=== PATIENT | female | born 1945 | race Two or more races ===

== ENCOUNTER 2022-12-22 09:13 | Outpatient (AMB) | payer MEDICARE, SELFPAY ==
--- NOTE | ~2022-12-22 | XR_ITS ---
EXAMINATION: XR KNEE AP STANDING CLINICAL INFORMATION: Pain in right knee COMPARISON: Right knee 12/22/2022 TECHNIQUE: AP bilateral standing view of the knees was obtained. FINDINGS: No fracture. Alignment is anatomic. Joint spaces are maintained. No abnormal soft tissue calcification. XR/XR knee standing BI IMPRESSION: No bony abnormality.
--- OUTSIDE RECORDS SUMMARY | 2022-12-22 09:14 | XMS_ITS | Continuity of Care Document ---
Author Name Unknown Organization [facility] ter Address [address] [place] [id number]- Care Team Providers Care Machine Accountant Name Role Phone Miko Cruz MD Primary Care Physician Encounter [facility] [place] Date(s): 06/02/19 - 06/09/[address] [address]- [facility] Attending Physician: Miko Cruz MD Allergies, Adverse Reactions, Alerts Substance Reaction Severity Status Lipitor muscle aches Active Immunizations Given and Recorded Vaccine Date Status Refusal Reason tetanus-diphtheria toxoids (Td) 05/15/96 Given Medications calcium and vitamin D combination 600 mg-200 u oral tablet 1, tablet, By Mouth, 2 times a day, 60, tablet, , , 07/01/06 8:52:53, Print YON Number, [id number], Constant Indicator Start Date: 07/01/06 Stop Date: 06/26/07 Status: Ordered Crestor 10 mg oral tablet 1 tablet = 10 mg, By Mouth, Daily at bedtime, 0 Refills, Maintenance Start Date: 04/30/12 Status: Ordered Problem List Condition Effective Dates Status Health Status 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
--- OUTSIDE RECORDS SUMMARY | 2022-12-22 09:14 | XMS_ITS | Continuity of Care Document ---
Author Name Unknown Organization [facility] ter Address [address] [place] [id number]- Care Team Providers Care Fence Builder Name Role Phone Miko Cruz MD Primary Care Physician [phone] Encounter [facility] [place] Date(s): 02/24/20 - 05/09/[address] [address]- Attending Physician: Miko Cruz MD Admitting Physician: Miko Cruz MD Referring Physician: Miko Cruz MD Allergies, Adverse Reactions, Alerts Substance Reaction Severity Status Lipitor muscle aches Active Immunizations Given and Recorded Vaccine Date Status Refusal Reason tetanus-diphtheria toxoids (Td) 05/15/96 Given Medications calcium and vitamin D combination 600 mg-200 u oral tablet 1, tablet, By Mouth, 2 times a day, 60, tablet, , , 07/01/06 8:52:53, Print YON Number, [id number], Constant Indicator Start Date: 07/01/06 Stop Date: 06/26/07 Status: Ordered Crestor 10 mg oral tablet 1 tablet = 10 mg, By Mouth, Daily at bedtime, 0 Refills, Maintenance Start Date: 04/30/12 Status: Ordered Problem List Condition Effective Dates Status Health Status 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
--- NOTE | 2022-12-22 09:15 | AM.OFFWIN_ITS ---
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 Past medical history significant for hypercholesteremia and no known other past medical history, she denies history of osteoarthritis, but does report new onset of bilateral hand and finger joints, no previous knee injuries or pain. 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 She does report swelling of right knee yesterday, but decreased swelling today. She endorses applying Bengay cream with some relief in pain. She denies taking acetaminophen or Ibuprofen for the pain, she also denies fever, chills, CP, SOB, dizziness, headache, changes in bowels or bladder. Review of Systems Const All systems reviewed & are unremarkable except as noted in HPI and below Physical Exam Vital Signs: Last Vital Signs Temp 98.5 F 12/22/22 09:17 Pulse 62 12/22/22 09:17 BP 116/60 12/22/22 09:17 Pulse Ox 94 12/22/22 09:17 Oxygen Delivery Method Room Air 12/22/22 09:17 Const General: healthy appearing and no acute distress Nutritional Appearance: well nourished Orientation/consciousness: patient oriented x3 Limitations: other limitations (limping) HEENT Head: Yes normocephalic and Yes atraumatic Ears: hearing grossly normal bilaterally Mouth: moist mucous membranes Chest Chest palpation & inspection: normal inspection of the chest Resp Effort & Inspection: normal respiratory effort, no cough, no respiratory distress and not tachypneic Auscultation: clear to auscultation bilaterally Cardio Rate: regular rate Rhythm: regular rhythm Heart sounds: S1 normal heart sound present and S2 normal heart sound present Peripheral pulses: Peripheral pulses 2+ throughout GI Palpation (GI): Soft to palpation, nontender and No hepatosplenomegaly present Auscultation: normal bowel sounds General: Yes no CVA tenderness Bimanual exam- vagina & uterus: normal bimanual exam Back/Spine/Pelvis Back: no CVA tenderness Skin General skin exam: no rashes or lesions noted and turgor normal Neuro General: patient oriented x3 and moves all extremities Extrem Right upper extremity: normal to inspection Left upper extremity: normal to inspection Right lower extremity: knee Details: tenderness, swelling Location: of the patella (+ 1 edema, no erythema, and warmth normal), abnormal ROM Details: pain with active ROM during, knee ligament exam normal and other (no effusion appreciated); no crepitus and no unusual warmth; no cyanosis Left lower extremity: normal to inspection and full ROM; no cyanosis, no edema and joint enlargement noted Psych Appearance: well kempt Mental Status: mental status grossly normal Speech and movement: Normal speech and movement present Affect: normal affect Attitude: cooperative Assessment & Plan Assessment & Plan (1) Osteoarthritis of right knee: Code(s): M17.11 - Unilateral primary osteoarthritis, right knee Qualifiers: Osteoarthritis type: unspecified Qualified Code(s): M17.11 - Unilateral primary osteoarthritis, right knee Plan: 77-year-old female with right knee pain x3 days. X-ray reveals narrowing joint, osteo arthritis Plan of Care: 1. Tylenol 1000 mg, orally, every 6 hours as needed for right knee pain. 2. Lidocaine patch, available [id number] and should be apply to area of maximal tenderness as directed on the outside packaging. 3. Ibuprofen 400 mg, orally with milk or food, every 6 hours as needed for right knee pain. 4. Ice to muscle pain twice a day, may alternate w/ heat therapy. 5. Follow up with PCP for further treatment and recommendations; may benefit from physical therapy. 6. Encouraged to take Calcium and Vitamin D supplements. 7. Return to office w/ unrelieved or worsening symptoms. Call office, or go to ER for acute worsening of symptoms. Coding Level of Care Code New Pt Level 3 (74562) Diagnoses Osteoarthritis of right knee M17.11 Osteoarthritis type: unspecified
[2022-12-22 09:17] VITALS: BP 116/60; PULSE 62; TEMP 36.9; O2SAT 94
== END 2022-12-22 09:47 | disposition home or self-care (01) ==
PROVIDERS: PCP Internal Medicine; Visit Provider Nurse Practitioner Acute Care
DX: M17.11 Unilateral primary osteoarthritis, right knee (principal)
CPT/HCPCS: 99051; 99203

== ENCOUNTER 2022-12-22 09:30 | Outpatient (REF) | payer MEDICARE, SELFPAY ==
--- NOTE | ~2022-12-22 | XR_ITS ---
EXAMINATION: XR KNEE, RIGHT CLINICAL INFORMATION: Right knee pain. COMPARISON: None available. TECHNIQUE: Four views of the right knee. FINDINGS: No significant tricompartmental degenerative joint changes are seen. There is no acute fracture or dislocation. There is a small to moderate suprapatellar joint effusion. The soft tissues are unremarkable. XR/XR knee RT 4V IMPRESSION: Small to moderate suprapatellar joint effusion. No acute fracture or significant degenerative joint changes.
== END 2022-12-22 09:31 | disposition home or self-care (01) ==
LOC: HO.HMGCX 09:30
PROVIDERS: PCP Internal Medicine; Visit Provider Nurse Practitioner Acute Care
DX: M25.561 Pain in right knee (principal)
CPT/HCPCS: 73564

== ENCOUNTER 2023-01-01 08:50 | Outpatient (AMB) | payer MEDICARE, SELFPAY ==
--- NOTE | 2023-01-01 09:00 | MHC.OFFVIS ---
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 States pain started about 3-4 weeks ago while she was sitting on the couch, pain worsens with weight bearing, or climbing stairs, and difficult to get comfortable at night in bed. She does report intermittent swelling of right knee. She has tried Bengay cream with some relief in pain. She denies taking acetaminophen or Ibuprofen for the pain. Seen in at walk- in Center where she was told to see an othopedic if pain worsens. 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 She was seen at walk-in clinic where she was referred to our office. She states she has pain and intermittent swelling in her right knee which is aggravated with weight bearing, laying down, going upstairs and at night. She finds mild relief with Bengay cream. 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 Review of Systems Const All systems reviewed & are unremarkable except as noted in HPI and below Physical Exam Vital Signs: BMI result Body Mass Index 23.2 Const General: cooperative, healthy appearing, comfortable, no acute distress, well developed and alert Orientation/consciousness: patient oriented x3 HEENT Head: Yes normal to inspection, Yes normocephalic and Yes atraumatic Eyes General: appearance normal, both eyes and all related structures Resp Effort & Inspection: normal respiratory effort and able to speak in complete sentences Cardio Rate: regular rate Peripheral pulses: Peripheral pulses 2+ throughout GI Palpation (GI): Soft to palpation Skin Lesions: no lesions Rashes: no rashes Neuro General: patient oriented x3 Extrem Other: Right knee: Skin intact, no erythema or joint effusion. Lateral retropatellar tenderness with tenderness along the medial joint line. Full ROM with crepitus. Negative Wilber?s. No ligamentous laxity. NVI. Lat retro patient tenderness and med joint line pain Office Procedures Joint Injection/Drain Joint Injection/Drain Details: 28cc joint fluid asp from right knee Primary Site: right knee Prep: site was prepped using aseptic technique, ethochloride spray was applied and injection warnings given Injected: 80 mg of, DepoMedrol, with 8 mL of, 1% plain lidocaine and in the joint Approach Used: lateral parapatellar Procedure: The patient tolerated the procedure well and there was some relief with the local anesthesia Coding 16117 - Glenohumeral/Tronchanteric Bursa/Intraarticular Procedure code (CPT) selection complete Results Reviewed Results Reviewed: 01/01/23 09:35 Lidocaine HCl 2 % MPF [Xylocaine 2 % MPF] 5 ml .ROUTE .STK-MED ONE methylPREDNISolone acetate [DEPO-MedroL] 80 mg .ROUTE .STK-MED ONE Xrays were obtained in the office today and personally reviewed by me show mild medial compartment oa Assessment & Plan Assessment & Plan (1) Osteoarthritis of right knee: Code(s): M17.11 - Unilateral primary osteoarthritis, right knee Qualifiers: Osteoarthritis type: unspecified Qualified Code(s): M17.11 - Unilateral primary osteoarthritis, right knee Plan We discussed options today which include steroid injection and asp. They did consent to move forward with the right knee injection/asp, which was tolerated well. 28cc Yellow joint fluid aspirated. I recommended rest, ice and elevation and OTC anti-inflammatories PRN for discomfort. If symptoms persist or worsens over the next 6-8 weeks, patient will contact the office, otherwise follow-up as needed. Orders: Orders XR knee standing BI Today M25.561 - Pain in right knee, M25.562 - Pain in left knee Patient Instructions: Scribed for Wilbert Lake PA-C, by Yousuf Sheldon medical anthropology director, on 01/01/2023 at 9:00 AM EST. I, Wilbert Lake PA-C, have personally reviewed and agree with the information entered by the scribe. Coding Level of Care Code New Pt Level 3 (07070) Diagnoses Osteoarthritis of right knee M17.11 Osteoarthritis type: unspecified CPT Codes Coding - Joint 7: 45172 - Glenohumeral/Tronchanteric Bursa/Intraarticular ([id number])
[2023-01-01 09:11] VITALS: BMI 23.2
== END 2023-01-01 10:44 | disposition home or self-care (01) ==
PROVIDERS: PCP Internal Medicine; Visit Provider Physician Assistant
DX: M17.11 Unilateral primary osteoarthritis, right knee (principal)
CPT/HCPCS: 20610; 99204

== ENCOUNTER → 2023-01-01 08:50 | Outpatient (BNVA) | payer MEDICARE, SELFPAY | PROVIDERS: PCP Internal Medicine; Visit Provider Physician Assistant | DX: M17.11 Unilateral primary osteoarthritis, right knee (principal) | CPT/HCPCS: 20610; J1040 ==

== ENCOUNTER 2023-01-01 15:53 | Outpatient (REF) | payer MEDICARE, SELFPAY ==
--- NOTE | ~2023-01-01 | XR_ITS ---
EXAMINATION: XR KNEE AP STANDING CLINICAL INFORMATION: Pain COMPARISON: Previous x-ray December 2022 TECHNIQUE: AP bilateral standing view of the knees was obtained. FINDINGS: Bone alignment is normal. No fracture or dislocation. Very mild joint space narrowing at the medial femoral tibial joints, left greater than right. Soft tissues are unremarkable. XR/XR knee standing BI IMPRESSION: Very mild medial femoral tibial joint space narrowing, left greater than right.
== END 2023-01-01 15:54 | disposition home or self-care (01) ==
LOC: HO.HOSX 15:53
PROVIDERS: Visit Provider Physician Assistant
DX: M17.11 Unilateral primary osteoarthritis, right knee (principal)
CPT/HCPCS: 20610; 73565

== ENCOUNTER 2023-07-19 09:07 | Outpatient (AMB) | payer MEDICARE, SELFPAY ==
--- NOTE | 2023-07-19 09:24 | A.OFFVIS_ITS ---
Intake Vital Signs 07/19/23 09:29 Height 5 ft 3 in Weight 131 lb BMI 23.2 Intake Visit Reasons: ov- Right Knee Pain Intake Note: Yony a 77 year old female presents today for a follow up of right knee OA, last injection on 01/01/23. Patient reports last injection provided her with relief until the past 2.5 weeks and has been progressively getting worse. States fluid has returned. Finds little relief with Tylenol, ibuprofen and topical creams. She would like to repeat injection today. Allergies No Known Allergies Allergy (Verified 07/19/23 09:28) HPI ov- Right Knee Pain HPI Details 77-year-old female who returns to the [facility] today for a follow-up of right knee pain. She currently states she has progressively worsening pain in his right knee. She finds mild relief with Tylenol, ibuprofen, and topical cream. She also reports the fluid in her knee has returned and would like to get it removed. She had her last injection on 01/01/23 which provided her relief until about 2.5 weeks ago. She would like to repeat the injection today. 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 Review of Systems Const All systems reviewed & are unremarkable except as noted in HPI and below Physical Exam Vital Signs: BMI result Body Mass Index 23.2 Const General: cooperative, healthy appearing, comfortable, no acute distress, well developed and alert Orientation/consciousness: patient oriented x3 HEENT Head: Yes normal to inspection, Yes normocephalic and Yes atraumatic Eyes General: appearance normal, both eyes and all related structures Resp Effort & Inspection: normal respiratory effort and able to speak in complete sentences Cardio Rate: regular rate Peripheral pulses: Peripheral pulses 2+ throughout GI Palpation (GI): Soft to palpation Skin Lesions: no lesions Rashes: no rashes Neuro General: patient oriented x3 Extrem Other: Right knee: Skin intact, no erythema or joint effusion. Lateral retropatellar tenderness with tenderness along the medial joint line. Full ROM with crepitus. Negative Wilber?s. No ligamentous laxity. NVI. Lat retro patient tenderness and med joint line pain Office Procedures Joint Injection/Drain Joint Injection/Drain Details: knee asp of 35cc joint fluid Primary Site: right knee Prep: site was prepped using aseptic technique and injection warnings given Injected: 80 mg of, DepoMedrol, with 8 mL of, 1% plain lidocaine and in the joint Approach Used: lateral parapatellar Procedure: The patient tolerated the procedure well Coding 52072 - Glenohumeral/Tronchanteric Bursa/Intraarticular Procedure code (CPT) selection complete Assessment & Plan Assessment & Plan (1) Osteoarthritis of right knee: Code(s): M17.11 - Unilateral primary osteoarthritis, right knee Qualifiers: Osteoarthritis type: unspecified Qualified Code(s): M17.11 - Unilateral primary osteoarthritis, right knee Plan We discussed options today which include steroid injection. They did consent to move forward with the left knee injection and asp, which was tolerated well. I was able to aspirate 35cc of joint fluid which she tolerated well. I recom mended rest, ice and elevation and OTC anti-inflammatories PRN for discomfort. A prescription of Celebrex was sent to her pharmacy which she will take for 2 weeks to help with her discomfort and swelling. If symptoms persist or worsens over the next 6-8 weeks, patient will contact the office, otherwise follow-up as needed. Medications: New celecoxib (Celebrex) 200 mg PO BID 60 caps 3RF 30 days Patient Instructions: Scribed for Wilbert Lake PA-C, by Yousuf Sheldon medical radiation therapist, on 07/19/2023 at 9:30 AM Wilbert CONN PA-C, have personally reviewed and agree with the information entered by the scribe. Coding Level of Care Code Est Pt Level 3 (34716) Diagnoses Osteoarthritis of right knee, unspecified osteoarthritis type M17.11 Osteoarthritis type: unspecified CPT Codes Coding - Joint 7: 76464 - Glenohumeral/Tronchanteric Bursa/Intraarticular ([id number])
[2023-07-19 09:29] VITALS: BMI 23.2
== END 2023-07-19 10:15 | disposition home or self-care (01) ==
PROVIDERS: PCP Internal Medicine; Visit Provider Physician Assistant
DX: M17.11 Unilateral primary osteoarthritis, right knee (principal)
CPT/HCPCS: 20610; 99214

== ENCOUNTER → 2023-07-19 09:07 | Outpatient (BNVA) | payer MEDICARE, SELFPAY | PROVIDERS: PCP Internal Medicine; Visit Provider Physician Assistant | DX: M17.11 Unilateral primary osteoarthritis, right knee (principal) | CPT/HCPCS: 20610; 99212; J1040 ==

== ENCOUNTER 2023-10-25 15:01 | Outpatient (AMB) | payer MEDICARE, SELFPAY ==
--- NOTE | 2023-10-25 15:07 | MHC.OFFWIV ---
Intake Vital Signs 10/25/23 15:16 Height 5 ft 3 in Weight 131 lb BMI 23.2 BP 120/62 Blood Pressure Location Rt brachial Position Sitting Pulse 72 Pulse Source Pulse Oximeter Pulse Oximetry (%) 95 Oxygen Delivery Method Room Air Intake Visit Reasons: EP ?UTI Intake Note: Pt is here today for possible uti. Pt states Abd pain and burning urinating. Patient Tobacco Use Status: Never used Tobacco Allergies No Known Allergies Allergy (Verified 07/19/23 09:28) Do you need a note to return to daycare/school/sports/work: No HPI HPI Comments History of Present Illness Details Patient is a 78-year-old female with a past medical history of chronic UTIs who does see a urologist regularly but he leaves the office at noon today. She states she started feeling this typical symptoms for a urinary tract infection overnight. This morning she noticed the pain and burning with urination as well as a pressure in her bladder. She denies any fevers, nausea. She states she typically gets Cipro for 7 days as other medications no longer work for her and Pyridium for pain. 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 Review of Systems Const All systems reviewed & are unremarkable except as noted in HPI and below Physical Exam Vital Signs: Last Vital Signs Pulse 72 10/25/23 15:16 BP 120/62 10/25/23 15:16 Pulse Ox 95 10/25/23 15:16 Oxygen Delivery Method Room Air 10/25/23 15:16 BMI result Body Mass Index 23.2 Const General: cooperative, healthy appearing, comfortable, no acute distress and well developed Orientation/consciousness: patient oriented x3 Limitations: no limitations HEENT Head: Yes normal to inspection Eyes General: appearance normal, both eyes and all related structures Neck Neck: Yes normal visual inspection and Yes full ROM GI Palpation (GI): Bladder palpation abnormal (slight) General: Yes Bladder palpation abnormal (slight) tender Skin General skin exam: no rashes or lesions noted Neuro General: patient oriented x3 Extrem General: Yes normal to inspection Assessment & Plan Assessment & Plan (1) Urinary tract infection: Code(s): N39.0 - Urinary tract infection, site not specified Qualifiers: Hematuria presence: with hematuria Urinary tract infection type: acute cystitis Qualified Code(s): N30.01 - Acute cystitis with hematuria Plan: As I am unable to send prescriptions to [facility] pharmacy, my colleague is sending prescriptions for me. Medications: New ciprofloxacin HCl 500 mg PO BID 14 tabs 0RF 7 days N30.01 - Acute cystitis with hematuria phenazopyridine (Pyridium) 100 mg PO TID PRN 6 tabs 0RF pain 6 doses R30.0 - Dysuria Coding Level of Care Code New Pt Level 3 (21772) Diagnoses Acute cystitis with hematuria N30.01 Hematuria presence: with hematuria Urinary tract infection type: acute cystitis
[2023-10-25 15:16] VITALS: BP 120/62; PULSE 72; O2SAT 95; BMI 23.2
== END 2023-10-25 17:36 | disposition home or self-care (01) ==
PROVIDERS: PCP Internal Medicine; Visit Provider Physician Assistant
DX: N30.01 Acute cystitis with hematuria (principal)
CPT/HCPCS: 99203